=== PATIENT | female | born 1980 | race Caucasian/White ===

== ENCOUNTER 2017-05-27 06:33 | Emergency (ER) | payer OTHER, MEDICAID ==
[2017-05-27] MEDS: ONDANSETRON 4 MG INJ IV (08:43)
[2017-05-27] MEDS: morphine 4 MG/ML VIAL IV (08:43)
[2017-05-27 08:59] LABS: ADD MAN DIFF? NO
[2017-05-27 09:02] LABS: BASOPHILS % 0.4 % (0.0-2.0); EOSINOPHILS # 0.2 10^3/ul (0.0-0.5); EOSINOPHILS % 2.4 % (0.0-7.0); HEMATOCRIT 44.1 % (37.0-47.0); HEMOGLOBIN 14.7 g/dl (12.0-16.0); LYMPHOCYTES # 2.5 10^3/ul (0.8-2.9); MEAN CORPUSCULAR HEMOGLOBIN 28.9 pg (29.0-33.0); MEAN CORPUSCULAR HGB CONC 33.3 g/dl (32.0-37.0); MEAN CORPUSCULAR VOLUME 86.8 fl (82.0-101.0); MEAN PLATELET VOLUME 11.1 fl (7.4-10.4); MONOCYTE # 0.5 10^3/ul (0.3-0.9); MONOCYTES % 7.7 % (0.0-11.0); NEUTROPHIL # 3.6 10^3/ul (1.6-7.5); NEUTROPHILS % 52.2 % (39.0-77.0); PLATELET COUNT 238 10^3/UL (140-415); RED BLOOD COUNT 5.08 10^6/ul (4.20-5.40); RED CELL DISTRIBUTION WIDTH 12.8 % (11.5-14.5)
[2017-05-27 09:02] LABS: WHITE BLOOD COUNT 6.8 10^3/ul (4.8-10.8)
[2017-05-27 09:14] LABS: ADD UMIC NO; UR ASCORBIC ACID NEGATIVE (NEGATIVE); UR BILIRUBIN (Dip) NEGATIVE (NEGATIVE); UR BLOOD (Dip) NEGATIVE (NEGATIVE); UR CLARITY CLEAR (CLEAR); UR COLOR YELLOW (YELLOW); UR GLUCOSE (Dip) NEGATIVE (NEGATIVE); UR KETONES (Dip) NEGATIVE (NEGATIVE); UR LEUKOCYTE ESTERASE (Dip) NEGATIVE Leu/ul (NEGATIVE); UR NITRITE (Dip) NEGATIVE (NEGATIVE); UR SPECIFIC GRAVITY (Dip) 1.026 (1.003-1.030); UR TOTAL PROTEIN (Dip) NEGATIVE (NEGATIVE); UR UROBILINOGEN (Dip) NEGATIVE (NEGATIVE)
[2017-05-27 09:30] LABS: ALANINE AMINOTRANSFERASE 45 IU/L (13-69); ALBUMIN 4.7 g/dl (3.3-4.9); ALBUMIN/GLOBULIN RATIO 1.42; ALKALINE PHOSPHATASE 67 IU/L (42-121); ANION GAP 17 (8-16); ASPARTATE AMINO TRANSFERASE 27 IU/L (15-46); BILIRUBIN,INDIRECT 0.4 mg/dl (0-1.1); BILIRUBIN,TOTAL 0.4 mg/dl (0.2-1.3); BLOOD UREA NITROGEN 13 mg/dl (7-20); CALCIUM 9.3 mg/dl (8.4-10.2); CARBON DIOXIDE 27 mmol/L (21-31); CHLORIDE 103 mmol/L (97-110); CREATININE 0.66 mg/dl (0.44-1.00); GLUCOSE 107 mg/dl (70-220); POTASSIUM 3.9 mmol/L (3.5-5.1); SODIUM 143 mmol/L (135-144)
[2017-05-27] MEDS: IOHEXOL 300MG/ML 150 ML BTL (10:56)
[2017-05-27] MEDS: SOD CHLORIDE 0.9% 100 ML (10:56)
== END 2017-05-27 12:56 | disposition home or self-care (01) ==
LOC: FTE 06:33
DX: R30.0 Dysuria (principal)
CPT/HCPCS: 36415; 74177; 80053; 81003; 85025; 87086; 96374; 96375; 99285-25

== ENCOUNTER 2017-10-05 19:33 | Inpatient (IN) | payer BC, OTHER ==
[2017-10-05 20:43] LABS: URINE PH (Dip) POC 6.5 (5.0-8.5)
[2017-10-05 20:43] LABS: URINE BLOOD (Dip) POC Negative (NEGATIVE); URINE GLUCOSE (Dip) POC Negative (NEGATIVE); URINE KETONES (Dip) POC Negative (NEGATIVE); URINE LEUKOCYTE EST (Dip) POC Negative (NEGATIVE); URINE NITRITE (Dip) POC Negative (NEGATIVE); URINE TOTAL PROTEIN POC Negative (NEGATIVE)
[2017-10-05] MEDS: IBUPROFEN 600 MG TAB PO (20:45)
[2017-10-05 23:27] LABS: ADD MAN DIFF? NO
[2017-10-05 23:29] LABS: BASOPHILS % 0.3 % (0.0-2.0); EOSINOPHILS # 0.2 10^3/ul (0.0-0.5); EOSINOPHILS % 2.6 % (0.0-7.0); HEMATOCRIT 40.3 % (37.0-47.0); HEMOGLOBIN 13.1 g/dl (12.0-16.0); LYMPHOCYTES # 2.1 10^3/ul (0.8-2.9); LYMPHOCYTES % 31.5 % (15.0-51.0); MEAN CORPUSCULAR HEMOGLOBIN 27.9 pg (29.0-33.0); MEAN CORPUSCULAR HGB CONC 32.5 g/dl (32.0-37.0); MEAN CORPUSCULAR VOLUME 85.7 fl (82.0-101.0); MEAN PLATELET VOLUME 10.6 fl (7.4-10.4); MONOCYTE # 0.6 10^3/ul (0.3-0.9); MONOCYTES % 8.9 % (0.0-11.0); NEUTROPHIL # 3.7 10^3/ul (1.6-7.5); NEUTROPHILS % 56.4 % (39.0-77.0); PLATELET COUNT 295 10^3/UL (140-415); RED CELL DISTRIBUTION WIDTH 13.1 % (11.5-14.5)
[2017-10-05 23:29] LABS: WHITE BLOOD COUNT 6.6 10^3/ul (4.8-10.8)
[2017-10-05 23:52] LABS: ANION GAP 11 (8-16); BLOOD UREA NITROGEN 15 mg/dl (7-20); CALCIUM 9.2 mg/dl (8.4-10.2); CARBON DIOXIDE 31 mmol/L (21-31); CHLORIDE 103 mmol/L (97-110); CREATININE 0.67 mg/dl (0.44-1.00); GLUCOSE 97 mg/dl (70-220); POTASSIUM 3.9 mmol/L (3.5-5.1); SODIUM 141 mmol/L (135-144)
[2017-10-06] MEDS: SOD CHLORIDE 0.9% 100 ML (00:21)
[2017-10-06] MEDS: IOHEXOL 300MG/ML 150 ML BTL (00:21)
[2017-10-06] MEDS: morphine 4 MG/ML VIAL IV (03:46)
[2017-10-06] MEDS: ONDANSETRON 4 MG INJ IV (03:46)
[2017-10-06] MEDS ORDERED: morphine 2 MG INJ IV (06:00)
[2017-10-06] MEDS: PANTOPRAZOLE (EC) 40 MG TAB PO (08:16)
[2017-10-06] MEDS: morphine LIQ (10 MG/5 ML) CUP PO ×2 (13:03→20:11)
[2017-10-06 15:18] LABS: CANCER ANTIGEN 125 31.3 U/ml (0.0-35.0)
[2017-10-06 15:18] LABS: CARCINOEMBRYONIC ANTIGEN 8.6 ng/ml (0.0-5.0)
[2017-10-06 15:35] LABS: LACTATE DEHYDROGENASE 711 IU/L (313-618)
[2017-10-06 15:35] LABS: URIC ACID 5.9 mg/dl (3.1-7.9)
[2017-10-06 18:03] LABS: CANCER ANTIGEN 19-9 2.3 U/ml (0.0-37.0)
[2017-10-07] MEDS: morphine 2 MG INJ IV ×3 (02:17→23:28)
[2017-10-07] MEDS: PANTOPRAZOLE (EC) 40 MG TAB PO ×2 (06:00→11:27)
[2017-10-07] MEDS: ONDANSETRON 4 MG INJ IV (11:21)
[2017-10-07] MEDS: LIDOCAINE 4% SOLUTION 50 ML BTL (11:24)
[2017-10-07] MEDS: PROPOFOL 60 ML (11:30)
[2017-10-07] MEDS ORDERED: DEXTROSE 5%-0.45% NACL 1,000 ML IV (16:00)
[2017-10-07] MEDS: DEXTROSE 5%-0.45% NACL 1,000 ML IV (16:18)
[2017-10-07] MEDS ORDERED: IOHEXOL 300MG/ML 150 ML BTL (20:37)
[2017-10-07] MEDS: SOD CHLORIDE 0.9% 100 ML (20:41)
[2017-10-07] MEDS: IOHEXOL 300MG/ML 150 ML BTL (20:42)
[2017-10-07] MEDS: DOCUSATE SODIUM 100 MG CAP PO (21:00)
[2017-10-08 16:31] LABS: CANCER ANTIGEN 15-3 7 U/mL (<32)
== END 2017-10-08 01:30 | disposition short-term general hospital (02) | DRG 375 ==
LOC: FTE 19:33 → MS1 10-06 02:36
PROVIDERS: Internal Medicine
PROC: 0DB68ZX Excision of Stomach, Via Natural or Artificial Opening Endoscopic, Diagnostic (ICD-10-PCS; principal; 2017-10-07 10:30)
DX: C16.9 Malignant neoplasm of stomach, unspecified (principal); C79.60 Secondary malignant neoplasm of unspecified ovary; R59.0 Localized enlarged lymph nodes
CPT/HCPCS: 71260; 74177; 76830; 76856; 80048; 81003; 81025; 82378; 83615; 84560; 85025; 86300; 86301; 86304; 88305; 88312; 99285-25